=== PATIENT | male | born 1970 | race Caucasian/White ===

== ENCOUNTER 2018-10-07 09:43 | Emergency (ER) | payer OTHER ==
[~2018-10-07] VITALS: Ht 170.2 cm; Wt 99.4 kg
[2018-10-07 10:13] VITALS: Ht 170.2 cm; Wt 99.4 kg
[2018-10-07] MEDS ORDERED: SOD CHLORIDE 0.9% 1,000 ML IV STA (10:40)
[2018-10-07] MEDS ORDERED: KETOROLAC 15 MG INJ IV STA (10:40)
[2018-10-07] MEDS ORDERED: DICYCLOMINE 20 MG INJ IM ONE (11:00)
[2018-10-07] MEDS ORDERED: DICY10CA40 PO (11:31)
--- NOTE | 2018-10-07 11:34 | ERD ---
ER Documentation Chief Complaint Chief Complaint INTERMITTENT MIDLINE UPPER AP STARTING ON SATURDAY HPI Very pleasant 48-year-old otherwise healthy gentleman who presents to the emergency room with approximately 3-4 days of symptoms including diffuse cramping abdominal discomfort with associated loose watery stool for approximately 10 times per day. Symptoms are slightly improving. Patient denies any recent travel, sick contacts, antibiotics. Patient had mild subjective fevers several days ago but none since. He denies any significant blood in the stool. No other complaints other than persistence of symptoms. ROS All systems reviewed and are negative except as per history of present illness. Medications Home Meds Active Scripts Dicyclomine HCl (Dicyclomine HCl) 10 Mg Capsule, 10 MG PO TID PRN for ABDOMINAL CRAMPING, #20 CAP Prov:FROY MANRIQUEZ MD 10/07/18 PMhx/Soc Medical and Surgical Hx: pt denies Medical Hx, pt denies Surgical Hx Hx Alcohol Use: Yes Hx Substance Use: No Hx Tobacco Use: No Smoking Status: Never smoker FmHx Family History: No diabetes Physical Exam Vitals Vital Signs Date Temp Pulse Resp B/P (MAP) Pulse Ox O2 O2 Flow FiO2 Time Delivery Rate 10/07/18 76 17 116/74 96 Room Air 10:57 (88) 10/07/18 99.4 66 16 127/73 98 10:13 (91) Physical Exam General: Well developed, well nourished, no acute distress Head: Normocephalic, atraumatic. Eyes: Pupils equally reactive, EOM intact ENT: Moist mucous membranes Neck: Supple, no lymphadenopathy Respiratory: Lungs clear bilaterally, no distress Cardiovascular: RRR, no murmurs, rubs, or gallops Abdominal: Soft, non-tender, non-distended, no peritoneal signs : Deferred MSK: No edema, no unilateral swelling, 5/5 strength Neurologic: Alert and oriented, moving all extremities, normal speech, no focal weakness, no cerebellar signs Skin: No rash Psych: Normal mood Results 24 hrs Current Medications Medications Dose Sig/Alvaro Start Time Status Last (Trade) Ordered Route PRN Stop Time Admin Dose Reason Admin Sodium 1,000 ml @ Q1H STAT 10/07/18 10/07/18 Chloride 1,000 mls/hr IV 10:40 10/07/18 11:05 11:39 Ketorolac 15 mg ONCE STAT 10/07/18 DC 10/07/18 Tromethamine IV 10:40 10/07/18 11:05 (Toradol) 10:49 Dicyclomine 10 mg ONCE ONCE 10/07/18 DC 10/07/18 HCl IM 11:00 10/07/18 11:11 (Bentyl) 11:01 Procedures/MDM The patient's clinical presentation is very consistent with an acute viral diarrheal illness. The patient has a benign abdominal examination without signs or symptoms concerning for acute intraconal process such as abscess, perforation or appendicitis. Symptom control is likely appropriate. I do not believe laboratory testing or diagnostic imaging are necessary at this time. The patient does not exhibit any clinical signs or symptoms concerning for serious bacterial infection or systemic illness. Based on history and clinical exam findings the patient does not appear to have evidence of pneumonia, strep pharyngitis, urinary tract infection, bacteremia, sepsis, or meningitis. For these reasons I do not believe it is necessary to obtain laboratory testing or diagnostic imaging. I believe it would be appropriate for symptom control, and close outpatient primary care follow-up. Patient received IV fluids Bentyl and Toradol with improved symptomatology. We discussed follow up with the patient's primary care doctor within 24 to 48 hours as needed. We also discussed return to the emergency room for worsening symptoms or worsening condition. Discharge Medications: The patient does not have an identifiable emergent medical condition that warrants inpatient hospitalization at this time. The patient is deemed safe for discharge with outpatient follow-up. We discussed follow up with the patient's primary care doctor within 24 to 48 hours as needed. We also discussed return to the emergency room for worsening symptoms or worsening condition. Outpatient referral: None required Discharge Medications: Bentyl Departure Diagnosis: Primary Impression: Diarrhea Diarrhea type: unspecified type Qualified Codes: R19.7 - Diarrhea, uns pecified Additional Impression: Abdominal pain Abdominal location: generalized Qualified Codes: R10.84 - Generalized abdominal pain Condition: Stable Patient Instructions: Treating Diarrhea Referrals: [facility] YOU HAVE RECEIVED A MEDICAL SCREENING EXAM AND THE RESULTS INDICATE THAT YOU DO NOT HAVE A CONDITION THAT REQUIRES URGENT TREATMENT IN THE EMERGENCY DEPARTMENT. FURTHER EVALUATION AND TREATMENT OF YOUR CONDITION CAN WAIT UNTIL YOU ARE SEEN IN YOUR DOCTORS OFFICE WITHIN THE NEXT 1-2 DAYS. IT IS YOUR RESPONSIBILITY TO MAKE AN APPOINTMENT FOR FOLOW-UP CARE. IF YOU HAVE A PRIMARY DOCTOR --you should call your primary doctor and schedule an appointment IF YOU DO NOT HAVE A PRIMARY DOCTOR YOU CAN CALL OUR PHYSICIAN REFERRAL HOTLINE AT IF YOU CAN NOT AFFORD TO SEE A PHYSICIAN YOU CAN CHOSE FROM THE FOLLOWING [facility] [id number] [facility] [address] [facility] [address] [facility] [address] [facility] [address] [facility]. [facility] [address] [facility] [facility] YOU HAVE RECEIVED A MEDICAL SCREENING EXAM AND THE RESULTS INDICATE THAT YOU DO NOT HAVE A CONDITION THAT REQUIRES URGENT TREATMENT IN THE EMERGENCY DEPARTMENT. FURTHER EVALUATION AND TREATMENT OF YOUR CONDITION CAN WAIT UNTIL YOU ARE SEEN IN YOUR DOCTORS OFFICE WITHIN THE NEXT 1-2 DAYS. IT IS YOUR RESPONSIBILITY TO MAKE AN APPOINTMENT FOR FOLOW-UP CARE. IF YOU HAVE A PRIMARY DOCTOR --you should call your primary doctor and schedule and appointment IF YOU DO NOT HAVE A PRIMARY DOCTOR YOU CAN CALL OUR PHYSICIAN REFERRAL HOTLINE AT . IF YOU CAN NOT AFFORD TO SEE A PHYSICIAN YOU CAN CHOSE FROM THE FOLLOWING [facility]: [facility] [address] [place] [address] [facility] [address] [place] [address] [facility] [address] [place] [address] Additional Instructions: Call your primary care doctor TOMORROW for an appointment during the next 1 WEEK.Tell the pathology secretary that you were referred from this facility.See the doctor sooner or return here if your condition worsens before your appointment time. FROY MANRIQUEZ MD Oct 07, 2018 11:34
[2018-10-07 11:50] VITALS: BP 113/70; PULSE 74; RESP 17
== END 2018-10-07 11:52 | disposition home or self-care (01) ==
LOC: E/R 09:43
DX: R19.7 Diarrhea, unspecified (principal)
CPT/HCPCS: 96372; 96374; J0500; J1885; J7030; Z7502